=== PATIENT | female | born 1975 | race Caucasian/White ===

== ENCOUNTER 2018-03-05 06:30 | Observation (INO) | payer OTHER ==
[2018-03-05] MEDS ORDERED: ACETAMINOPHEN 325 MG TAB PO (08:30)
[2018-03-05] MEDS ORDERED: NITROGLYCERIN (SL) 0.4 MG TAB SL (08:30)
[2018-03-05] MEDS ORDERED: ONDANSETRON 4 MG INJ IV (08:30)
[2018-03-05] MEDS ORDERED: traMADol 50 MG TAB PO (08:30)
[2018-03-05] MEDS ORDERED: DOCUSATE SODIUM 100 MG CAP PO (08:30)
[2018-03-05] MEDS ORDERED: NACL 0.9% 3 ML SYG IV (08:30)
[2018-03-05 09:34] LABS: ADD MAN DIFF? NO
[2018-03-05 09:43] LABS: WHITE BLOOD COUNT 5.2 10^3/ul (4.8-10.8)
[2018-03-05 09:43] LABS: BASOPHILS % 0.6 % (0.0-2.0); EOSINOPHILS # 0.1 10^3/ul (0.0-0.5); EOSINOPHILS % 1.4 % (0.0-7.0); HEMATOCRIT 36.5 % (37.0-47.0); HEMOGLOBIN 11.8 g/dl (12.0-16.0); LYMPHOCYTES # 1.6 10^3/ul (0.8-2.9); LYMPHOCYTES % 30.1 % (15.0-51.0); MEAN CORPUSCULAR HEMOGLOBIN 28.2 pg (29.0-33.0); MEAN CORPUSCULAR HGB CONC 32.3 g/dl (32.0-37.0); MEAN CORPUSCULAR VOLUME 87.3 fl (82.0-101.0); MEAN PLATELET VOLUME 10.5 fl (7.4-10.4); MONOCYTE # 0.5 10^3/ul (0.3-0.9); MONOCYTES % 8.7 % (0.0-11.0); NEUTROPHILS % 58.8 % (39.0-77.0); PLATELET COUNT 212 10^3/UL (140-415); RED BLOOD COUNT 4.18 10^6/ul (4.20-5.40); RED CELL DISTRIBUTION WIDTH 12.9 % (11.5-14.5)
[2018-03-05] MEDS: ENOXAPARIN 40 MG/0.4 ML SYG SC (09:56)
[2018-03-05 10:02] LABS: CREATINE KINASE 39 IU/L (23-200)
[2018-03-05 10:07] LABS: ALANINE AMINOTRANSFERASE 17 IU/L (13-69); ALBUMIN 4.1 g/dl (3.3-4.9); ALBUMIN/GLOBULIN RATIO 1.32; ALKALINE PHOSPHATASE 81 IU/L (42-121); ANION GAP 8 (5-13); ASPARTATE AMINO TRANSFERASE 18 IU/L (15-46); BILIRUBIN,INDIRECT 0.1 mg/dl (0-1.1); BILIRUBIN,TOTAL 0.1 mg/dl (0.2-1.3); BLOOD UREA NITROGEN 14 mg/dl (7-20); CALCIUM 8.7 mg/dl (8.4-10.2); CARBON DIOXIDE 27 mmol/L (21-31); CHLORIDE 104 mmol/L (97-110); CREATININE 0.74 mg/dl (0.44-1.00); Estimated GFR > 60 mL/min (>60); GLUCOSE 88 mg/dl (70-220); LIPASE 80 U/L (23-300); POTASSIUM 3.9 mmol/L (3.5-5.1); SODIUM 139 mmol/L (135-144); TOTAL PROTEIN 7.2 g/dl (6.1-8.1)
[2018-03-05 10:16] LABS: CK INDEX 0.6; CK-MB < 0.22 ng/ml (0.0-2.4); TROPONIN-I < 0.012 ng/ml (0.000-0.120)
[2018-03-05 10:22] LABS: MAGNESIUM 2.5 mg/dl (1.7-2.5)
[2018-03-05] MEDS: FAMOTIDINE 20 MG INJ IV ×2 (11:41→20:18)
[2018-03-05] MEDS: morphine 4 MG/ML VIAL IV (11:42)
[2018-03-05 14:15] LABS: CREATINE KINASE 38 IU/L (23-200)
[2018-03-05 14:28] LABS: CK INDEX 0.6; CK-MB < 0.22 ng/ml (0.0-2.4); TROPONIN-I < 0.012 ng/ml (0.000-0.120)
[2018-03-05] MEDS: MAGNESIUM HYDROXIDE 30ML CUP PO (20:18)
[2018-03-05] MEDS: DOCUSATE SODIUM 100 MG CAP PO (20:18)
[2018-03-06 05:39] LABS: ADD MAN DIFF? NO
[2018-03-06 05:51] LABS: WHITE BLOOD COUNT 4.9 10^3/ul (4.8-10.8)
[2018-03-06 05:51] LABS: BASOPHIL # 0.1 10^3/ul (0.0-0.1); EOSINOPHILS # 0.1 10^3/ul (0.0-0.5); EOSINOPHILS % 2.6 % (0.0-7.0); HEMATOCRIT 34.5 % (37.0-47.0); HEMOGLOBIN 11.1 g/dl (12.0-16.0); LYMPHOCYTES # 1.7 10^3/ul (0.8-2.9); LYMPHOCYTES % 35.2 % (15.0-51.0); MEAN CORPUSCULAR HEMOGLOBIN 27.9 pg (29.0-33.0); MEAN CORPUSCULAR HGB CONC 32.2 g/dl (32.0-37.0); MEAN CORPUSCULAR VOLUME 86.7 fl (82.0-101.0); MONOCYTE # 0.5 10^3/ul (0.3-0.9); MONOCYTES % 10.6 % (0.0-11.0); NEUTROPHIL # 2.5 10^3/ul (1.6-7.5); NEUTROPHILS % 50.2 % (39.0-77.0); PLATELET COUNT 206 10^3/UL (140-415); RED BLOOD COUNT 3.98 10^6/ul (4.20-5.40); RED CELL DISTRIBUTION WIDTH 12.6 % (11.5-14.5)
[2018-03-06] MEDS: PANTOPRAZOLE 40 MG INJ IV (05:52)
[2018-03-06] MEDS ORDERED: PANTOPRAZOLE (EC) 40 MG TAB PO (06:00)
[2018-03-06 06:50] LABS: ANION GAP 6 (5-13); BLOOD UREA NITROGEN 14 mg/dl (7-20); CALCIUM 8.4 mg/dl (8.4-10.2); CARBON DIOXIDE 27 mmol/L (21-31); CHLORIDE 104 mmol/L (97-110); CREATININE 0.87 mg/dl (0.44-1.00); Estimated GFR > 60 mL/min (>60); GLUCOSE 89 mg/dl (70-220); MAGNESIUM 2.3 mg/dl (1.7-2.5); POTASSIUM 3.8 mmol/L (3.5-5.1); SODIUM 137 mmol/L (135-144)
[2018-03-06] MEDS: DOCUSATE SODIUM 100 MG CAP PO (07:51)
[2018-03-06] MEDS: ENOXAPARIN 40 MG/0.4 ML SYG SC (07:55)
[2018-03-06] MEDS: METOCLOPRAMIDE 10 MG INJ IV (12:32)
[2018-03-06 13:52] LABS: IRON 52 ug/dl (35-150)
[2018-03-06 14:02] LABS: % IRON SATURATION 18 % SAT (22-52); TOTAL IRON BINDING CAPACITY 288 ug/dl (241-421)
[2018-03-06 14:29] LABS: FERRITIN 13.1 ng/ml (6.2-137.0)
[2018-03-06] MEDS: FENTAnyl 50 MCG/ML VIAL (15:58)
[2018-03-06] MEDS: LIDOCAINE 100 MG SYRINGE (15:58)
[2018-03-06] MEDS: PROPOFOL 40 ML (15:58)
== END 2018-03-06 21:18 | disposition home or self-care (01) ==
LOC: 6WM 06:30
DX: K20.8 Other esophagitis (principal); R10.13 Epigastric pain; D50.9 Iron deficiency anemia, unspecified; K76.0 Fatty (change of) liver, not elsewhere classified; Z90.49 Acquired absence of other specified parts of digestive tract; Z88.0 Allergy status to penicillin
CPT/HCPCS: 43239; 76700; 80048; 80053; 82533; 82550; 82553; 82728; 83540; 83690; 83735; 84443; 84484; 85025; 88305; 88312; 93306; G0378